=== PATIENT | male | born 1945 | race American Indian/Alaskan Native ===

== ENCOUNTER 2017-10-22 13:12 | Outpatient (CLI) | payer MEDICARE ==
--- NOTE | 2017-10-22 17:24 | XRay Report ---
FINAL REPORT EXAM: XR KNEE 4+V RT HISTORY: RIGHT KNEE PAIN TECHNIQUE: Four views of the right knee PRIORS: None. FINDINGS: There is chondrocalcinosis the tibia femoral joint space with meniscal calcification. There is small joint effusion present. No acute fracture or dislocation is identified. Patella is normal in position. IMPRESSION: Small joint effusion Chondrocalcinosis suggestive of underlying CPPD arthropathy
== END 2017-10-22 13:13 | disposition home or self-care (01) ==
LOC: SPVIMAG 13:12
PROVIDERS: ATTEND Orthopaedic Surgery Sports Medicine
DX: M11.261 Other chondrocalcinosis, right knee (principal); R07.9 Chest pain, unspecified; R06.02 Shortness of breath

== ENCOUNTER 2019-02-27 15:28 | Emergency (ER) | payer MEDICARE ==
--- NOTE | 2019-02-27 15:49 | Event Note ---
ED Screening Note Date of service: 02/27/19 Time: 15:46 ED Screening Note: This is a 73 y.o. M. that presents to the ER s/p trip and fall. Patient was picking his up from outpatient surgery when he tripped and fell hitting his head and landing on right side. Patient reports he was unconscious for less than a minute. CC: swelling and pain to right frontal and right knee This initial assessment/diagnostic orders/clinical plan/treatment(s) is/are subject to change based on patients health status, clinical progression and re- assessment by fellow clinical providers in the ED. Further treatment and workup at subsequent clinical providers discretion. Patient/guardian urged not to elope from the ED as their condition may be serious if not clinically assessed and managed. Initial orders include: CT of head and XR of right knee
--- NOTE | 2019-02-27 16:23 | XRay Report ---
RIGHT KNEE 3 VIEWS INDICATION / CLINICAL INFORMATION: pain and swelling s/p fall. COMPARISON: None available. FINDINGS: Mild tricompartmental degenerative change with chondrocalcinosis. No other significant skeletal abnor mality. Signer Name: Adarsh Johnson MD FACOdalys Signed: 02/27/2019 4:18 PM Workstation Name: [id number]
--- NOTE | 2019-02-27 16:50 | Cat Scan Report ---
CT head without contrast CLINICAL HISTORY: Headache, trauma FINDINGS: No previous exams are available for comparison. There is extensive cerebral and pontine whi te matter disease most consistent with microvascular angiopathy. At. There is a small lacunar infarct within the right thalamus which appears chronic at; correlation would be needed at. There are foci o f calcification within the basal ganglia bilaterally at. There is no definitive CT evidence of acute intracranial hemorrhage or significant mass effect. The cerebral atrophy most notably involves the frontal lobes with prominence of the CSF attenuation a long the frontal convexities and interhemispheric fissure. The ventricular system is correspondingly appropriate in size and configuration. There is mild opacification along the superior right sphenoid sinus. All CT scans at this location are performed using the CT dose reduction for [employer] by means of automated exposure control. IMPRESSION: There is extensive microvascular angiopathy as detailed above without CT evidence of acute intracrani al hemorrhage. Signer Name: Freddie Reaves MD Signed: 02/27/2019 4:46 PM Workstation Name: [id number]
[2019-02-27] MEDS ORDERED: BOOSTRIX IM ONE (16:58)
[2019-02-27] MEDS ORDERED: TYLENOL PO ONE (16:58)
--- NOTE | 2019-02-27 17:12 | Emergency Department Report ---
HPI - General Chief Complaint: Fall Time Seen by Provider: 02/27/19 15:46 - HPI HPI: Room 6 The patient is 73-year-old male presenting with a chief complaint of fall. The patient states he was in a parking lot when he tripped over something causing him to lose his balance and fall striking his head on the ground. Patient states he believes he must have lost consciousness because he doesn't remember everything. Patient complains of a headache pain in the right wrist and hand and right knee. The patient gives his pain is 46-7/10 Location: [See above] Duration: [See above] Quality: [See above] Severity: [See above] Modifying factors: [see above] Context: [see above] Mode of transportation: [not driving] ED Past Medical Hx - Past Medical History Hx Hypertension: Yes Hx Diabetes: Yes - Surgical History Past Surgical History?: No Additional Surgical History: Back surgeries - Family History Family history: no significant - Social History Smoking Status: Former Smoker (none 30 years) Substance Use Type: None - Medications Home Medications: Home Medications Medication Instructions Recorded Confirmed Last Taken Type HYDROcodone/APAP 5-325 [[place] 1 - 2 each PO Q6HR PRN #14 tablet 02/27/19 Unknown Rx 5/325] ED Review of Systems ROS: Stated complaint: FALL/R SIDE HEAD PAIN/R ARM/HAND/KNEE Other details as noted in HPI Constitutional: no symptoms reported Eyes: denies: eye pain ENT: denies: throat pain Respiratory: no symptoms reported Cardiovascular: denies: chest pain Endocrine: no symptoms reported Gastrointestinal: denies: abdominal pain Genitourinary: denies: dysuria Musculoskeletal: arthralgia, myalgia. denies: back pain Neurological: headache Physical Exam - Physical Exam Vital Signs: Vital Signs 02/27/19 15:46 Temperature 97.9 F Pulse Rate 63 Respiratory 20 Rate Blood Pressure 155/83 O2 Sat by Pulse 97 Oximetry Physical Exam: GENERAL: The patient is well-developed well-nourished male lying on stretcher not appearing to be in acute distress. [] HEENT: Normocephalic. Small linear abrasion to right forehead. Extraocular motions are intact. Patient has moist mucous membranes. NECK: Supple. There is no axial tenderness to palpation CHEST/LUNGS: Clear to auscultation. There is no respiratory distress noted. HEART/CARDIOVASCULAR: Regular. There is no tachycardia. There is no gallop rub or murmur. ABDOMEN: Abdomen is soft, nontender. Patient has normal bowel sounds. There is no abdominal distention. SKIN: There is no rash. There is no edema. There is no diaphoresis. Small linear abrasion to the right forehead. Superficial abrasion to the right wrist dorsum NEURO: The patient is awake, alert, and oriented. The patient is cooperative. The patient has no focal neurologic deficits. The patient has normal speech. MUSCULOSKELETAL: There is tenderness to palpation of the right anatomical snuffbox. There is no deformity seen ED Course Vital Signs 02/27/19 15:46 Temperature 97.9 F Pulse Rate 63 Respiratory 20 Rate Blood Pressure 155/83 O2 Sat by Pulse 97 Oximetry ED Medical Decision Making - Radiology Data Radiology results: report reviewed (CT head, x-ray right knee), image reviewed (CT head, x-ray right knee, right hand x-ray, right wrist x-ray) interpreted by me: Right knee x-ray-no acute fracture Right hand x-ray-no acute fracture Right wrist x-ray-no acute fracture [facility] [address] [place] [address] Cat Scan Report Signed Patient: CARLOS TORRE MR#: [id number] : 1945 Acct:[id number] Age/Sex: 73 / M ADM Date: 02/27/19 Loc: ED Attending Dr: Ordering Physician: FEI MITCHELL Date of Service: 02/27/19 Procedure(s): CT head/brain wo con Accession Number(s): [id number] cc: FEI MITCHELL CT head without contrast CLINICAL HISTORY: Headache, trauma FINDINGS: No previous exams are available for comparison. There is extensive cerebral and pontine white matter disease most consistent with microvascular angiopathy. At. There is a small lacunar infarct within the right thalamus which appears chronic at; correlation would be needed at. There are foci of calcification within the basal ganglia bilaterally at. There is no definitive CT evidence of acute intracranial hemorrhage or significant mass effect. The cerebral atrophy most notably involves the frontal lobes with prominence of the CSF attenuation along the frontal convexities and interhemispheric fissure. The ventricular system is correspondingly appropriate in size and configuration. There is mild opacification along the superior right sphenoid sinus. All CT scans at this location are performed using the CT dose reduction for [employer] by means of automated exposure control. IMPRESSION: There is extensive micr ovascular angiopathy as detailed above without CT evidence of acute intracranial hemorrhage. Signer Name: Freddie Reaves MD Signed: 02/27/2019 4:46 PM Workstation Name: [id number] Transcribed By: MR Dictated By: Freddie Reaves MD Electronically Authenticated By: Freddie Reaves MD Signed Date/Time: 02/27/19 1646 DD/ 1642 TD/TT: [facility] [address] [place] [address] XRay Report Signed Patient: CARLOS TORRE MR#: [id number] : 1945 Acct:[id number] Age/Sex: 73 / M ADM Date: 02/27/19 Loc: ED Attending Dr: Ordering Physician: FEI MITCHELL Date of Service: 02/27/19 Procedure(s): XR knee 3V RT Accession Number(s): [id number] cc: FEI MITCHELL Fluoro Time In Minutes: RIGHT KNEE 3 VIEWS INDICATION / CLINICAL INFORMATION: pain and swelling s/p fall. COMPARISON: None available. FINDINGS: Mild tricompartmental degenerative change with chondrocalcinosis. No other significant skeletal abnormality. Signer Name: Adarsh Johnson MD FACR Signed: 02/27/2019 4:18 PM Workstation Name: [id number] Transcribed By: MS Dictated By: Adarsh Johnson MD Electronically Authenticated By: Adarsh Johnson MD Signed Date/Time: 02/27/19 1618 DD/ 1615 TD/TT: - Differential Diagnosis closed head injury, ICH, knee fracture, scaphoid fracture Critical care attestation.: If time is entered above; I have spent that time in minutes in the direct care of this critically ill patient, excluding procedure time. ED Disposition Clinical Impression: Closed head injury, Contusion of right knee, Right wrist injury Disposition: - TO HOME OR SELFCARE Is pt being admited?: No Does the pt Need Aspirin: No Condition: Stable Instructions: Minor Head Injury (ED), Scaphoid Fracture (ED) Additional Instructions: Return to the emergency department immediately should you develop worsening symptoms, fever, inability to tolerate food or liquid or any other concerns. Prescriptions: HYDROcodone/APAP 5-325 [[place] 5/325] 1 - 2 each PO Q6HR PRN #14 tablet PRN Reason: Pain Referrals: DAVID BELLA MD [Staff Physician] - 3-5 Days (Dr. Bella is an orthopedic surgeon. Please follow-up with him for further evaluation) Time of Disposition: 17:43
[2019-02-27 17:51] VITALS: BP 170/79
--- NOTE | 2019-02-27 17:57 | XRay Report ---
RIGHT WRIST 3 VIEWS INDICATION / CLINICAL INFORMATION: pain after fall COMPARISON: None available. FINDINGS: BONES / JOINT(S): No acute fracture or subluxation. No significant arthritis. SOFT TISSUES: No significant abnormality. ADDITIONAL FINDINGS: None. Signer Name: Antoni Montgomery MD Signed: 02/27/2019 5:53 PM Workstation Name: [id number]
--- NOTE | 2019-02-27 17:59 | XRay Report ---
Right hand 3 views INDICATION / CLINICAL INFORMATION: pain after fall COMPARISON: None available. FINDINGS: BONES / JOINT(S): No acute fracture or subluxation. There is degenerative change in the thumb MCP carito nt. SOFT TISSUES: No significant abnormality. ADDITIONAL FINDINGS: None. Signer Name: Antoni Montgomery MD Signed: 02/27/2019 5:54 PM Workstation Name: [email or web address]
== END 2019-02-27 19:10 | disposition home or self-care (01) ==
LOC: ED 15:28
DX: S80.01XA Contusion of right knee, initial encounter (principal); S60.811A Abrasion of right wrist, initial encounter; S00.81XA Abrasion of other part of head, initial encounter; I10 Essential (primary) hypertension; E11.9 Type 2 diabetes mellitus without complications; Z87.891 Personal history of nicotine dependence; Z79.899 Other long term (current) drug therapy; W01.0XXA Fall on same level from slipping, tripping and stumbling without subsequent striking against object, initial encounter; Y93.89 Activity, other specified; Y92.89 Other specified places as the place of occurrence of the external cause; Y99.8 Other external cause status
CPT/HCPCS: 70450; 90471; 90715; 99284